=== PATIENT | male | born 1955 | race African-American/Black ===

== ENCOUNTER 2016-12-12 09:16 | Inpatient (IN) | payer OTHER ==
[~2016-12-12] VITALS: Ht 170.2 cm; Wt 82.0 kg
[~2016-12-12 09:16] MED LIST: FLEX5TAB3 PO; MELOXICAM PO; ORPHENADRINE; PERCOCET PO; PRED10TA2 PO; SENO8.6T9 PO
[2016-12-12] MEDS ORDERED: NS 1,000 ML IV SCH (10:11)
[2016-12-12 10:35] LABS: BASO % 0.3 % (0.0-1.0); EOS % 0.7 % (0.0-3.0); LARGE UNSTAINED CELL # 0.1 K/mm3 (0.0-0.4); LARGE UNSTAINED CELL % 1.3 % (0.0-4.0); LYMPH # 1.2 K/mm3 (1.5-4.5); LYMPH % 15.6 % (24.0-44.0); MEAN CORPUSCULAR HEMOGLOBIN 30.9 pg (27.0-33.0); MEAN CORPUSCULAR HGB CONC 34.1 g/dl (32.0-36.5); MEAN CORPUSCULAR VOLUME 90.4 fl (80.0-96.0); MONO # 0.5 K/mm3 (0.0-0.8); MONO % 7.3 % (0.0-5.0); NEUTROPHILS # 5.4 K/mm3 (1.8-7.7); NEUTROPHILS % 74.8 % (36.0-66.0); PLATELET COUNT, AUTOMATED 239 k/mm3 (150-450); WHITE BLOOD COUNT 7.2 K/mm3 (4.0-10.0)
[2016-12-12 10:54] LABS: ABG BASE EXCESS 1.6 (-2.0-2.0); ABG HCO3 25.7 MEQ/L (22.0-26.0); ABG PARTIAL PRESSURE O2 80.4 mmHg (75.0-100.0); ABG STANDARD HCO3 25.8 MEQ/L (22.0-26.0); ABG TOTAL CO2 26.9 MEQ/L (23.0-31.0); ABG pH (ARTERIAL) 7.437 UNITS (7.350-7.450)
--- NOTE | 2016-12-12 10:55 | REP ---
AP PORTABLE CHEST: 12/12/2016 at 10:30 a.m. COMPARISON: 12/11/2016 chest x-ray. CLINICAL HISTORY: Altered mental status. FINDINGS: Semi-erect AP portable chest performed. The lung carrillo are hypoinflated compared to yesterday's study. There is crowding of markings in the perihilar regions and patchy infrahilar density in both lower lung zones which may be atelectasis or early infiltrate. However there is no silhouetting of the diaphragms. The CP angles remain sharply defined. No lateral pleural thickening, apical scarring or pneumothorax is noted. Heart size not enlarged for this degree of inflation. The aorta is mildly tortuous but without aneurysm. Airway intact. There is no free air under the diaphragm. Bones grossly intact. IMPRESSION: 1. Hypoinflated chest with perihilar and infrahilar increased markings. This may reflect some atelectasis from low level of inflation but superimposed pneumonitis is not excluded. No gross cardiomegaly, edema or effusion. A PA and lateral chest when able would be potentially helpful. Signed by James Garcia MD 12/12/2016 05:12 P
[2016-12-12 11:06] LABS: ALKALINE PHOSPHATASE 87 U/L (45-117); ALT/SGPT 34 U/L (12-78); AST/SGOT 56 U/L (15-37); BILIRUBIN,DIRECT 0.2 MG/DL (0.0-0.2); BILIRUBIN,TOTAL 1.1 MG/DL (0.2-1.0); BLOOD UREA NITROGEN 17 MG/DL (7-18); CALCIUM LEVEL 9.1 MG/DL (8.8-10.2); CARBON DIOXIDE LEVEL 28 MEQ/L (21-32); CHLORIDE LEVEL 108 MEQ/L (98-107); CREATININE FOR GFR 1.37 MG/DL (0.70-1.30); GLUCOSE, FASTING 103 MG/DL (80-110); POTASSIUM SERUM 4.5 MEQ/L (3.5-5.1); SODIUM LEVEL 146 MEQ/L (136-145); TOTAL PROTEIN 7.1 GM/DL (6.4-8.2)
[2016-12-12 11:21] LABS: ERYTHROCYTE SEDIMENTATION RATE 1 mm/hr (0-20)
[2016-12-12 11:49] LABS: METHADONE URINE NEGATIVE (NEGATIVE)
[2016-12-12] MEDS ORDERED: PERCOCET 5MG/325MG TAB PO PRN (12:00)
[2016-12-12] MEDS ORDERED: ACETAMINOPHEN TAB 650MG DOSE (2X325MG) PO PRN (12:00)
[2016-12-12] MEDS ORDERED: ONDANSETRON 4 MG TAB (S0181) PO PRN (12:00)
[2016-12-12] MEDS ORDERED: ONDANSETRON 4MG/2ML VIAL (J2405) IV PRN (12:00)
[2016-12-12] MEDS: NS 0.45% 1,000 ML IV SCH ×2 (12:38→20:08)
--- NOTE | 2016-12-12 12:38 | HPEPDOC ---
Medical History and Physical Date of Admission Dec 12, 2016 at 11:50 History and Physical HISTORY AND PHYSICAL Date of admission: 12/12/2016 PCP: None Chief complaint: Confused, difficulty talking HPI: 61-year-old healthy and very active male who went on a 5 hour trail walk with his friend yesterday. A walk of this kind is very typical for the patient. At approximately noon, the friend decided to go home, but the patient said he wanted to continue to walk with the dogs, so they parted ways. A little bit later, the patient texted his friend and told him that he was lost. His friend instructed him to stay where he was, and he would come get him. When the friend arrived, the patient was not there. At this time, the canine team got involved, and was able to track him down 7 hours later. At that time, he was taken to the [place] [facility]. His workup there appeared relatively unremarkable, including a CT of the head which did not have any acute changes. The patient was, by report, still confused and having difficulty with his speech when he was in the [facility]. However, he was evidently allowed to sign out AMA. His son took him home, but noticed that he was shuffling when he was walking, and was still having trouble with his speech. By report, the patient was only able to speak 1 or 2 words at a time. This morning, the family evidently called EMS to transport the patient back to the [facility]. When EMS arrived, it apparently seems that the patient did not want to go to the ER, so EMS spoke with the provider at [facility], he told EMS that they could allow the patient to refuse transport. Evidently, EMS was still concerned about the patient, and recommended to the family, that they bring him to the emergency department. When he arrived in our ER, the ER doctor noticed a right facial droop, as well as right tongue deviation. Upon my interview with the patient, he is unable to explain any of this to me, and there is no family at the bedside. This history was obtained by report from our ER physician. The patient is able to answer yes or no, and to follow commands, and thus I was able to complete the review of systems. Past history was obtained from prior records. Past medical history: None Past surgical history: None Family history: Unknown Social history: No history of tobacco use. Does not drink any alcohol. Allergies: No known drug allergies Review of systems: General: Negative for fever and chills Eyes: Negative for vision changes. Positive for watery drainage from his right eye. ENT: Negative for sore throat and nose bleed Cardiovascular: Negative for chest pain and palpitations Respiratory: Negative for cough and shortness of breath GI: Negative for nausea, vomiting, diarrhea, constipation Musculoskeletal: Negative for neck and back pain Skin: Positive for superficial abrasions, and swelling of the right hand Neuro: Negative for headache, dizziness, numbness, tingling. Positive for dysarthria Psych: Patient denies being sad Endocrine: Negative for polyuria : Negative for dysuria Heme: Negative for bleeding Home meds: See below Physical exam: Vital signs: Vital Sign - Last 24 Hours 12/12/16 12/12/16 12/12/16 12/12/16 09:17 09:46 09:48 10:01 Temp 98.7 Pulse 79 70 70 Resp 16 B/P 147/82 143/82 Pulse Ox 100 97 98 12/12/16 12/12/16 12/12/16 12/12/16 10:03 10:16 10:31 11:01 Pulse 66 68 68 B/P 146/89 Pulse Ox 96 98 96 12/12/16 12/12/16 11:08 11:15 Pulse 65 Resp 20 B/P 134/80 131/80 Pulse Ox 100 Gen.: awake, alert, no acute distress Eyes: watery drainage from right eye ENT: Moist mucous membranes Cardiovascular: RRR, no murmurs rubs or gallops Lungs: clear to auscultation bilaterally, no rales, rhonchi, or wheeze Abdomen: Soft, NT/ND, normal BS Musculoskeletal: normal range of motion Extremities: No peripheral edema Neuro: alert and oriented x2, states it is "55" when asked the year; right facial droop but no other deficits noted; intact bilat finger to nose, no pronator drip; has difficulty answering questions that require more than a one or two word answer Psych: unable to assess Labs and radiology: See below CBC, lactate, TSH are unremarkable Blood and urine cultures pending Chest x-ray shows pneumonitis first atelectasis EKG shows normal sinus rhythm with no evidence of ischemia or infarct Troponin 0.13 Sodium 146 Creatinine 1.37 CK greater than 1100 CT of the head shows evolving acute infarct in the left MCA distribution including the left frontal lobe and left basal ganglia Assessment and plan: 61-year-old healthy, very active male who presents with dysarthria and is admitted with an acute CVA. 1. Acute CVA: Patient will be started on an aspirin and a statin. Lipid panel will be checked in the morning, and we will also check an MRI and MRA of the head and neck, as well as an echocardiogram. The patient will be monitored on telemetry, and Dr. Gaona with neurology will see the patient in consultation. We will ask speech therapy, as well as PT and OT to evaluate the patient. 2. Rhabdomyolysis: CK is elevated, and the patient was lost outside for several hours yesterday. We will initiate the patient on IV fluids and trend his CK. 3. Acute kidney injury and hypernatremia: I suspect that these are secondary to dehydration, given his events yesterday. As mentioned above, he'll be started on IV fluids. 4. Elevated troponin: His troponin is in the becker zone, but his EKG is entirely unremarkable. He denies any chest pain. We will continue to trend troponins and monitor on telemetry. 5. Right hand swelling: I suspect that this is secondary to some trauma from yesterday. We will get plain films of the right hand and wrist. DVT prophylaxis: Lovenox Dispo: admit as an inpatient to the PCU CODE STATUS: Full code Vital Signs See above Laboratory Data Labs 24H Laboratory Tests 2 12/12/16 10:18: Acetaminophen Level < 2.0L, Aspartate Amino Transf (AST/SGOT) 56H, Alanine Aminotransferase (ALT/SGPT) 34, Alkaline Phosphatase 87, Total Bilirubin 1.1H, Direct Bilirubin 0.2, Albumin 3.9, Ammonia < 10, White Blood Count 7.2, Red Blood Count 5.32, Hemoglobin 16.4, Hematocrit 48.1, Mean Corpuscular Volume 90.4 , Mean Corpuscular Hemoglobin 30.9, Mean Corpuscular Hemoglobin Concent 34.1, Red Cell Distribution Width 13.0, Platelet Count 239, Neutrophils (%) (Auto) 74.8H, Lymphocytes (%) (Auto) 15.6L, Monocytes (%) (Auto) 7.3H, Eosinophils (%) (Auto) 0.7, Basophils (%) (Auto) 0.3, Neutrophils # (Auto) 5.4, Lymphocytes # ( Auto) 1.2L, Monocytes # (Auto) 0.5, Eosinophils # (Auto) 0.0, Basophils # (Auto ) 0.0, C-Reactive Protein, Quantitative 0.58H, Calcium Level 9.1, Creatine Kinase MB 4.0H, Creatine Kinase MB Relative Index 0.33, Erythrocyte Sedimentation Rate 1, Ethyl Alcohol Level < 0.003, Large Unclassified Cells # 0.1, Large Unclassified Cells % 1.3, Salicylates Level < 1.7L, Thyroid Stimulating Hormone (TSH) 0.581, Total Creatine Kinase 1180H, Total Protein 7.1 , Troponin I 0.13H 12/12/16 10:39: Lactic Acid (Sepsis) 1.1 12/12/16 10:40: Bedside Glucose (Misc Panel) 93 12/12/16 10:43: Arterial Blood pH 7.437, Arterial Blood Partial Pressure CO2 39.0, Arterial Blood Partial Pressure O2 80.4, Arterial Blood Total CO2 26.9, Arterial Blood HCO3 25.7, Arterial Blood Base Excess 1.6, Arterial Blood Oxygen Saturation 96.3 , Blood Gas Bicarbonate Standard 25.8 12/12/16 11:06: Urine Amorphous Sediment , Urine Amphetamines Screen NEGATIVE, Urine Benzodiazepines Screen NEGATIVE, Urine Opiates Screen NEGATIVE, Urine Appearance CLEAR, Urine Color YELLOW, Urine pH 6.0, Urine Specific [place] 1.024 , Urine Protein NEGATIVE, Urine Glucose (UA) NEGATIVE, Urine Ketones TRACEH, Urine Urobilinogen 0.2, Urine Bilirubin NEGATIVE, Urine Leukocyte Esterase NEGATIVE, Urine Bacteria (Auto) NEGATIVE, Urine Barbiturates Screen NEGATIVE, Urine Blood NEGATIVE, Urine Calcium Carbonate Cryst(Auto) , Urine Calcium Oxalate Cryst (Auto) , Urine Calcium Phosphate Mia (Auto) , Urine Cannabinoids Screen NEGATIVE, Urine Cellular Casts , Urine Cocaine Metabolite Screen NEGATIVE , Urine Cystine Crystals , Urine Granular Casts (Auto) , Urine Hyaline Casts ( Auto) 0, Urine Leucine Crystals , Urine Methadone Screen NEGATIVE, Urine Mucus ( Auto) SMALL, Urine Nitrite NEGATIVE, Urine Oval Fat Bodies (Auto) , Urine Phencyclidine Screen NEGATIVE, Urine RBC (Auto) 6H, Urine Renal Epithelial Cells , Urine Sperm (Auto) , Urine Squamous Epithelial Cells 0, Urine Transitional Epithelial Cells , Urine Trichomonas (Auto) , Urine Triple Phosphate Cryst (Auto) , Urine Tyrosine Crystals , Urine Uric Acid Crystals ( Auto) , Urine WBC (Auto) 1, Urine Waxy Casts (Auto) , Urine Yeast-Like Cells ( Auto) CBC/BMP Laboratory Tests 12/12/16 10:18 Red Blood Count 5.32, Mean Corpuscular Volume 90.4, Mean Corpuscular Hemoglobin 30.9, Mean Corpuscular Hemoglobin Concent 34.1, Red Cell Distribution Width 13.0 , Neutrophils (%) (Auto) 74.8 H, Lymphocytes (%) (Auto) 15.6 L, Monocytes (%) ( Auto) 7.3 H, Eosinophils (%) (Auto) 0.7, Basophils (%) (Auto) 0.3, Neutrophils # (Auto) 5.4, Lymphocytes # (Auto) 1.2 L, Monocytes # (Auto) 0.5, Eosinophils # (Auto) 0.0, Basophils # (Auto) 0.0 Microbiology Microbiology 12/12/16 Blood Culture, Received Pending 12/12/16 Blood Culture, Received Pending 12/12/16 Urine Culture, Received Pending Home Medications No Active Prescriptions or Reported Meds Allergies Coded Allergies: No Known Allergies (Unverified , 07/16/13) YAMIL ESCOTO Dec 12, 2016 12:38
--- NOTE | 2016-12-12 13:44 | REP ---
Noncontrast CT study of the brain. History: Altered mental status. Comparison study is from the previous day. Findings: There is no evidence of intracranial hemorrhage. There is however a fairly large new area of low density in the left frontal lobe extending to the external capsule of the basal ganglia on the left. This is compatible with a recent infarct. No midline shift is seen. No bleed is noted. Ventricular size is unchanged from the prior study. The subarachnoid space is somewhat widened in the posterior fossa consistent with subdural hygroma. This is bilateral but unchanged and not acute. No vascular calcification is seen. The bony calvarium is intact. Impression: Acute infarct pattern developing in the left middle cerebral artery distribution left frontal lobe and left basal ganglia. No hemorrhage seen. Otherwise unchanged from yesterday's CT study. Signed by Ben Tan MD 12/12/2016 03:17 P
[2016-12-12] MEDS: ASPIRIN 81 MG ENTERIC TAB PO SCH (13:49)
[2016-12-12] MEDS: ENOXAPARIN 40 MG/0.4 ML SYRINGE (J1650) SC SCH (13:49)
[2016-12-12] MEDS: ATORVASTATIN 20 MG TAB PO SCH (13:49)
[2016-12-12 15:00] LABS: ANION GAP 10 MEQ/L (8-16)
[2016-12-12 15:01] LABS: ALBUMIN 3.9 GM/DL (3.2-5.2); ALBUMIN/GLOBULIN RATIO 1.22 (1.00-1.93)
--- NOTE | 2016-12-12 15:19 | REP ---
RIGHT WRIST SERIES: Four views. HISTORY: Swelling. FINDINGS: There is mild diffuse wrist swelling. No fracture or subluxation is seen. IMPRESSION: No fracture or other acute bony abnormality. Signed by Ben Tan MD 12/12/2016 03:18 P
--- NOTE | 2016-12-12 15:20 | REP ---
RIGHT HAND SERIES: Four views. HISTORY: Swelling. FINDINGS: Four views right hand demonstrate diffuse dorsal soft tissue swelling. Overall mineralization pattern is normal. 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 IMPRESSION: No fracture noted. Diffuse swelling. First metacarpal phalangeal joint spurring and joint space narrowing. Signed by Ben Tan MD 12/12/2016 03:18 P
[2016-12-12 18:11] VITALS: BP 136/79
[2016-12-12 21:19] VITALS: BP 143/85
[2016-12-13] VITALS (7 sets, daily range): BP systolic 126–173; BP diastolic 72–94
[2016-12-13 03:22] LABS: BASO % 0.2 % (0.0-1.0); EOS # 0.1 K/mm3 (0.0-0.50); EOS % 2.4 % (0.0-3.0); LARGE UNSTAINED CELL # 0.1 K/mm3 (0.0-0.4); LARGE UNSTAINED CELL % 1.8 % (0.0-4.0); LYMPH # 1.2 K/mm3 (1.5-4.5); LYMPH % 18.1 % (24.0-44.0); MEAN CORPUSCULAR HEMOGLOBIN 30.6 pg (27.0-33.0); MEAN CORPUSCULAR VOLUME 89.8 fl (80.0-96.0); MONO # 0.4 K/mm3 (0.0-0.8); NEUTROPHILS # 4.2 K/mm3 (1.8-7.7); NEUTROPHILS % 70.4 % (36.0-66.0); PLATELET COUNT, AUTOMATED 211 k/mm3 (150-450); RED CELL DISTRIBUTION WIDTH 12.9 % (11.5-14.5)
[2016-12-13 03:55] LABS: ALBUMIN 3.5 GM/DL (3.2-5.2); ALBUMIN/GLOBULIN RATIO 1.25 (1.00-1.93); ALKALINE PHOSPHATASE 79 U/L (45-117); ALT/SGPT 29 U/L (12-78); ANION GAP 9 MEQ/L (8-16); AST/SGOT 43 U/L (15-37); BILIRUBIN,TOTAL 1.7 MG/DL (0.2-1.0); BLOOD UREA NITROGEN 14 MG/DL (7-18); CARBON DIOXIDE LEVEL 26 MEQ/L (21-32); CHLORIDE LEVEL 104 MEQ/L (98-107); CHOLESTEROL LEVEL 215 MG/DL (<200); CREATININE FOR GFR 1.08 MG/DL (0.70-1.30); GLOMERULAR FILTRATION RATE > 60.0 (>49); GLUCOSE, FASTING 88 MG/DL (80-110); MAGNESIUM LEVEL 1.8 MG/DL (1.8-2.4); SODIUM LEVEL 139 MEQ/L (136-145); TOTAL PROTEIN 6.3 GM/DL (6.4-8.2); TRIGLYCERIDES LEVEL 66 MG/DL (<150)
[2016-12-13] MEDS: NS 0.45% 1,000 ML IV SCH ×2 (05:31→15:06)
--- NOTE | 2016-12-13 07:15 | CR ---
DATE OF CONSULTATION: 12/12/2016 REFERRING PHYSICIAN: Dr. Lashell Sneed REASON FOR CONSULTATION: Difficulty speaking and confusion. HISTORY OF PRESENT ILLNESS: Ashkan Hutton is a 61-year-old -[place] male who went on a 5-hour trail walk with his friend. This was a typical walk for him. Around noon, his friend decided to go home, but he decided to continue to walk with his dogs. A little bit later, the patient texted his friend and told him that he was lost. The friend told him to stay where he was and he would come and get him. When the friend arrived, the patient was not there. At that time, the canine team got involved and they were able to track him down 7 hours later. He was taken to [facility] emergency department. His workup was relatively unremarkable, including CT scan of his head which did not show any acute changes. The patient was still confused and had difficulty with his speech. He was allowed to sign out against medical advice. His son took him home. The patient was able to speak one or two words at a time. His gait was shuffling. This morning, the family called emergency medical services to transport him back to [facility]. It seemed that the patient did not want to go to the emergency room (ER), so emergency services spoke with a provider at [facility] emergency department that they could allow the patient to refuse transport. Emergency medical services were still concerned and recommended to the family and they brought him to the emergency department at [facility] with right-sided facial weakness and tongue deviation. In the emergency department, CT scan of his head revealed a left frontal acute-subacute ischemic stroke. The patient denies any headache, neck or back pain. He himself denies any numbness or weakness of his arms and legs. He is able to speak a few words and short sentences currently. He keeps his right eye closed, which tears. His eye examination shows conjunctival redness and erythema. PAST MEDICAL HISTORY: None. HOME MEDICATIONS: None. SOCIAL HISTORY: He denies smoking, alcohol or illicit drugs. FAMILY HISTORY: Mother had stroke. REVIEW OF SYSTEMS: All systems were reviewed and found to be noncontributory except as mentioned history present illness. ALLERGIES: No known drug allergies. PHYSICAL EXAMINATION: Vital Signs: Temperature 98.7, pulse 79, respiratory rate 16, blood pressure 147/82. Heart: Regular rate and rhythm. Lungs: Clear to auscultation. Abdomen: Soft, nontender, nondistended. No pedal edema. He has right eye conjunctival injection, redness and a little bit of swelling. He denies any trauma to his right eye or falls. The patient is awake, alert, oriented to person and place. He is unable to tell me the exact date and day. He is able to tell me month and year. Extraocular muscles are intact. No facial weakness. Tongue and uvula are midline. 5/5 strength in all four extremities. Deep tendon flexes 2+ throughout. Normal sensation. No dysmetria. Gait was not tested. DIAGNOSTIC STUDIES: CT scan of his head showed a medium-sized left anterior division of middle cerebral artery ischemic stroke. ASSESSMENT: 1. Left middle cerebral artery anterior division ischemic stroke. 2. Rule out cardiac source, coagulopathy and vasculopathy. 3. Rule out paroxysmal atrial fibrillation. PLAN: 1. MRI and MRA brain. 2. Carotid ultrasound. 3. Transesophageal echocardiogram. 4. Blood tests to rule out coagulopathy and vasculopathy. 5. Continue telemonitoring. 6. Aspirin 325 mg by mouth daily. 7. Check fasting lipid profile. In acute and subacute phase, we can continue simvastatin or atorvastatin 40 mg by mouth daily. 8. Followup with our office in 2 weeks after hospital discharge.
--- NOTE | 2016-12-13 08:12 | ECGEPIP ---
Stationary ECG Study [facility] - ED Test Date: 2016-12-12 Pat Name: Serafin AGUSTIN Department: Room: - Gender: M Registered Representative: : 1955 Requested By: Hay Coon Order Number: [id number] Reading MD: Hay Graham Measurements Intervals [place] Rate: 65 P: 55 NH: 160 QRS: 9 QRSD: 89 T: -2 QT: 391 QTc: 409 Interpretive Statements SINUS RHYTHM Electronically Signed On 12-13-2016 8:12:10 EDT by Hay Graham
[2016-12-13] MEDS: ATORVASTATIN 20 MG TAB PO SCH (08:26)
[2016-12-13] MEDS: ENOXAPARIN 40 MG/0.4 ML SYRINGE (J1650) SC SCH (08:26)
[2016-12-13] MEDS: ASPIRIN 81 MG ENTERIC TAB PO SCH (08:26)
[2016-12-13] MEDS ORDERED: ASPIRIN 325 MG TAB PO SCH (09:00)
--- NOTE | 2016-12-13 12:40 | IPN ---
DATE: 12/13/2016 This 61-year-old -Russian male is seen at the bedside. Admitted yesterday for new-onset parietal stroke. According to the nurses, he appears to be less confused than he was yesterday; however, he is having some right eye drainage which started overnight. There has been no reportable fever, chills, chest pain, nausea, vomiting, productive sputum or cough. OBJECTIVE: Temperature is 99.9, pulse 69, respiratory rate is 18, blood pressure (BP) 143/72, SPO2 is 95% on room air. General: The patient appears to be in no acute distress, alert. He does have some slight confusion, but he was able to correctly identify the hospital and that he is in [place]. He thought that the year was 2014, though was able to identify the correct president by name. HEENT: Head is atraumatic, normocephalic. Eyes: Pupils equal, reactive to light and accommodation (AWA). The right conjunctiva appears to be indurated and there is some mild clear to mucopurulent drainage of the eye. Throat is otherwise clear. Heart: Regular rate and rhythm. Abdomen: Soft. Stop Attacher strength slightly decreased on the right, however, the lower extremities do show good and equal strength. No distal sensory deficits noted. ASSESSMENT/PLAN: 1. 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 Continue on aspirin and statin therapy. Appreciate Dr. Gaona's input. MRI/MRA is pending at this time as well as an echocardiogram. Will leave him on telemetry. Speech therapy did feel the patient cleared well with speech and we can progress his diet as tolerated. Continue with physical therapy (PT) and occupational therapy (OT) evaluation and treatment. 2. Right eye conjunctivitis. Will start on gentamicin ophthalmic drops. 3. Rhabdomyolysis. Does appear to be much improved. Will continue with IV fluids. 4. Acute kidney injury with hypernatremia. Labs appear to be back at baseline. 5. Mildly elevated troponin, likely related to rhabdomyolysis. This is resolved. He does not have any chest pain. 6. Right hand swelling, possibly secondary to hand trauma. The patient had been out hiking and likely had fallen. X-rays of the wrist and hand did not demonstrate any acute fracture. This most likely is a soft tissue injury. 7. Deep vein thrombosis (DVT) prophylaxis with Lovenox. DISPOSITION: Will continue on progressive care unit (PCU) on telemetry. Await further MRI/MRA and echocardiogram results. Appreciate Dr. Gaona's input. LARRY
--- NOTE | 2016-12-13 16:31 | ECHO ---
DATE OF PROCEDURE: 12/12/2016 AGE: 61 GENDER: Male. HEIGHT: 67 inches. WEIGHT: 160 pounds. BODY SURFACE AREA: 1.84 m2. INPATIENT: Progressive care unit (PCU) Room 3221. REFERRING PHYSICIAN: Lashell Sneed INDICATION: Cerebrovascular accident (CVA). MEASUREMENTS: 2D MEASUREMENTS: RV - 3.4 cm LV - 4.9 cm Septum - 1.0 cm Posterior wall - 1.0 cm Aortic root - 3.0 cm LA - 3.4 cm LVEF 65% DOPPLER MEASUREMENTS: AV - 1.5 m/s LVOT - 1.1 m/s LVOT diameter- 2.1 cm MV - E 60, A 70, E/A ratio 0.8 Early mitral deceleration time 183 ms PV - 0.8 m/s Pulmonary artery acceleration time 80 ms RVSP 43 mmHg IVC - 1.6 cm COMMENTS: Normal sinus rhythm without intraventricular conduction disturbance. Normal cardiac chamber sizes and wall thickness. On real-time imaging from the parasternal and apical projections wall motion was symmetrical and hyperkinetic. Normal appearing mitral valvular apparatus and leaflet excursion with no posterior systolic buckling. Three equal sized aortic cusps with marginally thickened cusp edges. Normal aortic root size. No apparent intracardiac mass or pericardial effusion. Color flow Doppler study taken from the parasternal and apical projections showed very mild aortic, trace mitral and mild to moderate tricuspid insufficiency. There was also mild to moderate pulmonic insufficiency. Guided continuous wave Doppler of his aortic valve showed a normal peak systolic velocity against left ventricle (LV) outflow tract obstruction. Pulsed and continuous wave Doppler taken from the apical four-chamber projection showed normal diastolic filling velocities against mitral stenosis. The filling pattern was also normal against LV diastolic dysfunction. Pulsed and continuous wave Doppler of his pulmonary trunk showed a normal peak systolic velocity against right ventricle (RV) outflow tract obstruction. His pulmonary artery acceleration time was abbreviated consistent with an elevated pulmonary vascular resistance. Guided continuous wave Doppler of his tricuspid valve allowed our estimation of his right ventricular systolic pressure (mild to moderately increased). His inferior vena cava was of normal size with normal respiratory collapse against an elevated central venous pressure. CONCLUSIONS: Unable to detect an intracardiac source of embolic material. Normal left ventricular size, wall thickness, and hyperkinetic wall motion. Normal left atrial size and Doppler assessment of LV diastolic function. Normal right heart chamber sizes but Doppler signs of at least mild to moderate pulmonary hypertension. Normal IVC size and collapse against an elevated central venous pressure. Subtle aortic valvular sclerosis without stenosis but very mild insufficiency. If a cardiac source of embolic material is seriously suspect we would recommend a complete blood count, sedimentation rate, and two sets of blood cultures by 12 hours and possibly transesophageal echocardiogram. His observed pulmonary hypertension would not appear to be due to left ventricular diastolic dysfunction. Consider a screen for obstructive sleep apnea.
[2016-12-13] MEDS: GENTAMICIN 0.3% OPHTH SOL 5 ML BTL OD SCH ×2 (17:29→21:46)
--- NOTE | 2016-12-13 21:20 | REPUSA ---
CLINICAL HISTORY:Acute CVA TECHNIQUE: Three dimensional [id number] angiography is performed of the [place]. The darion dy was performed without IV contrast agent. FINDINGS: The supraclinoid portions of the internal carotid arteries are of normal shape. The normal bifurcation is seen. The middle cerebral arteries are unremarkable in appearance. The posterior circu lation is visualized and shows no evidence of occlusion or aneurysm formation. The basilar tip is see n and shows no aneurysm formation. There is no evidence of beading to suggest vasculitis. IMPRESSION: MRA of the [place] is within normal limits. Thank you for your kind referral of this patient.
--- NOTE | 2016-12-13 21:30 | REPUSA ---
CLINICAL HISTORY: Acute CVA TECHNIQUE: MRI of the brain was performed without administration of intravenous contrast material. T1 spine echo, T2 fast spin echo and FLAIR sequences were obtained in sagittal, axial and coronal plane s. FINDINGS: No T1, increased T2 and FLAIR signal in the left frontal temporal cortex effacing the becker-white kaiden er with history to diffusion consistent with acute infarct. No intra-axial or extraction fluid collections, midline shift, hydrocephalus, or evidence of herniati on. Paranasal sinuses, visualized mastoid air cells, orbital compartments, osseous structures, and extrar enal soft tissues are unremarkable. IMPRESSION: Acute left frontotemporal infarct. Thank you for your kind referral of this patient.
[2016-12-14] MEDS: GENTAMICIN 0.3% OPHTH SOL 5 ML BTL OD SCH ×6 (00:11→20:15)
[2016-12-14] MEDS: NS 0.45% 1,000 ML IV SCH (02:32)
[2016-12-14 04:00] VITALS: BP 129/69
[2016-12-14 05:03] LABS: BASO % 0.5 % (0.0-1.0); EOS # 0.1 K/mm3 (0.0-0.50); EOS % 1.8 % (0.0-3.0); LARGE UNSTAINED CELL # 0.1 K/mm3 (0.0-0.4); LARGE UNSTAINED CELL % 2.7 % (0.0-4.0); LYMPH # 1.2 K/mm3 (1.5-4.5); LYMPH % 23.4 % (24.0-44.0); MEAN CORPUSCULAR HEMOGLOBIN 29.7 pg (27.0-33.0); MEAN CORPUSCULAR HGB CONC 33.7 g/dl (32.0-36.5); MONO # 0.2 K/mm3 (0.0-0.8); MONO % 3.7 % (0.0-5.0); NEUTROPHILS # 3.6 K/mm3 (1.8-7.7); NEUTROPHILS % 67.9 % (36.0-66.0); PLATELET COUNT, AUTOMATED 215 k/mm3 (150-450); RED CELL DISTRIBUTION WIDTH 12.6 % (11.5-14.5); WHITE BLOOD COUNT 5.2 K/mm3 (4.0-10.0)
[2016-12-14 05:16] LABS: ALBUMIN 3.2 GM/DL (3.2-5.2); ALBUMIN/GLOBULIN RATIO 1.14 (1.00-1.93); ALKALINE PHOSPHATASE 71 U/L (45-117); ALT/SGPT 23 U/L (12-78); ANION GAP 9 MEQ/L (8-16); AST/SGOT 36 U/L (15-37); BILIRUBIN,TOTAL 1.6 MG/DL (0.2-1.0); BLOOD UREA NITROGEN 10 MG/DL (7-18); CALCIUM LEVEL 7.8 MG/DL (8.8-10.2); CARBON DIOXIDE LEVEL 26 MEQ/L (21-32); CHLORIDE LEVEL 103 MEQ/L (98-107); CREATININE FOR GFR 1.02 MG/DL (0.70-1.30); GLOMERULAR FILTRATION RATE > 60.0 (>49); GLUCOSE, FASTING 102 MG/DL (80-110); POTASSIUM SERUM 3.8 MEQ/L (3.5-5.1); SODIUM LEVEL 138 MEQ/L (136-145)
[2016-12-14 07:25] VITALS: BP 126/69
--- NOTE | 2016-12-14 07:50 | REPUSA ---
HISTORY: Acute CVA COMPARISON: None TECHNIQUE: resonance angiography of the neck was performed at 1.5T with 2-D axial [id number] imag es. During the dynamic injection of contrast, coronal 3D [id number] MRA of the neck was performed . All images are retrospectively targeted and reformatted in three dimensions according to standard p rotocol. FINDINGS: The visualized vessels demonstrate no flow restrictive stenoses or occlusions. No aneurysms are ident ified. IMPRESSION: No evidence of flow restrictive stenosis or occlusions. Thank you for your kind referral of this patient
[2016-12-14] MEDS ORDERED: SLF 3 ML SYR IV PRN (08:00)
[2016-12-14] MEDS: ATORVASTATIN 20 MG TAB PO SCH (09:09)
[2016-12-14] MEDS: ASPIRIN 325 MG TAB PO SCH (09:09)
[2016-12-14] MEDS: ENOXAPARIN 40 MG/0.4 ML SYRINGE (J1650) SC SCH (09:10)
[2016-12-14 11:30] VITALS: BP 125/78
[2016-12-14] MEDS: SLF 3 ML SYR IV SCH ×2 (14:00→20:16)
--- NOTE | 2016-12-14 14:32 | IPN ---
DATE: 12/14/2016 61-year-old gentleman seen at bedside. No overnight issues reported. Denies headache, dizziness, blurry vision, double vision. No chest pain, nausea or vomiting. No shortness of breath. Physical therapy states that he is doing better today and participating well with them. No issues with his meals. OBJECTIVE Temperature 97.7, pulse 58, respiratory rate 18, blood pressure 126/69, SpO2 is 100% on room air. HEENT: The right conjunctiva is slightly indurated with some clear drainage. Throat is clear. NECK: Supple. LUNGS: Clear. HEART: Regular rhythm. ABDOMEN: Soft. EXTREMITIES: Stone Banker strength barely diminished on the right compared to left; otherwise, his power is 6/6 in the upper and lower extremities with good movement throughout. Pulses were equal. Sensation is equal throughout. Cranial nerves II through XII are grossly intact. He is alert and oriented times three. His cognition is slightly slow, but he is able to recognize person, place and thing appropriately. Appropriately identifies where he is at, who the president is, the current year. LABORATORY DATA: White count 5.2, hemoglobin 15.1, platelets 215,000. Sodium is 138, potassium 3.8, chloride 103, bicarb 26, anion gap 9, BUN 10, creatinine 1.02, glucose 102, magnesium 2.0, AST 36, ALT 23, alkaline phosphatase 71, CK is 549, albumin is 3.2. Coagulopathy studies are pending as well as ANCA studies, Ro and La antibodies, as well as anticardiolipin and double-stranded DNA is pending. Blood cultures negative times two for 48 hours. Urine cultures negative. ASSESSMENT/PLAN: 1. 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 Does appear to be slightly improved. Continue with aspirin and statin therapy as outlined. Appreciate Dr. Gaona's input. Transesophageal echocardiogram is pending at this time. Will continue him on telemetry. Appreciate speech therapy who did clear him to increase his diet to a regular diet. Continue with physical therapy, occupational therapy. 2. Right eye conjunctivitis. Continue with gentamicin ophthalmic drops. 3. Rhabdomyolysis. Appears much improved. His CK is 549. He is tolerating good oral intake. Will go ahead and discontinue his IV fluids. 4. Acute kidney injury with hypernatremia. Resolved and at baseline. 5. Elevated Troponin, likely related to rhabdomyolysis. He did not have any chest pain. No EKG changes. No changes on telemetry. This was a mild elevation of troponin which is resolved. 6. Right hand swelling, possibly secondary to trauma. This appears to be going down. X-rays are negative for any fracture, and likely this was soft tissue injury. 7. Deep vein thrombosis (DVT) prophylaxis. Continue with Lovenox. DISPOSITION: The patient's prognosis appears to be good. Currently we are awaiting a transesophageal echo. Will leave him on telemetry for the time being. Appreciate Dr. Gaona's input and with see how he does with continuing with physical therapy and occupational therapy, and see if there would be a necessity for a physical medicine and rehabilitation consult. Currently, the big issue that he has is with some slowed cognition, but will see how that improves over the next 24-48 hours.
[2016-12-14 15:46] VITALS: BP 138/90
[2016-12-14 20:00] VITALS: BP 149/76
[2016-12-15] VITALS (14 sets, daily range): BP systolic 109–148; BP diastolic 63–88
[2016-12-15] MEDS: GENTAMICIN 0.3% OPHTH SOL 5 ML BTL OD SCH ×6 (00:05→20:51)
[2016-12-15] MEDS: SLF 3 ML SYR IV SCH ×3 (05:42→20:51)
[2016-12-15 05:47] LABS: BASO % 0.3 % (0.0-1.0); EOS # 0.1 K/mm3 (0.0-0.50); EOS % 2.5 % (0.0-3.0); LARGE UNSTAINED CELL # 0.1 K/mm3 (0.0-0.4); LARGE UNSTAINED CELL % 1.7 % (0.0-4.0); LYMPH # 1.3 K/mm3 (1.5-4.5); LYMPH % 23.1 % (24.0-44.0); MEAN CORPUSCULAR HEMOGLOBIN 30.3 pg (27.0-33.0); MEAN CORPUSCULAR HGB CONC 34.5 g/dl (32.0-36.5); MEAN CORPUSCULAR VOLUME 87.8 fl (80.0-96.0); MONO # 0.4 K/mm3 (0.0-0.8); NEUTROPHILS # 3.4 K/mm3 (1.8-7.7); NEUTROPHILS % 65.4 % (36.0-66.0); PLATELET COUNT, AUTOMATED 205 k/mm3 (150-450); RED CELL DISTRIBUTION WIDTH 12.7 % (11.5-14.5); WHITE BLOOD COUNT 5.2 K/mm3 (4.0-10.0)
[2016-12-15 06:04] LABS: ALBUMIN 3.3 GM/DL (3.2-5.2); ALBUMIN/GLOBULIN RATIO 0.97 (1.00-1.93); ALKALINE PHOSPHATASE 74 U/L (45-117); ALT/SGPT 25 U/L (12-78); ANION GAP 9 MEQ/L (8-16); AST/SGOT 29 U/L (15-37); BLOOD UREA NITROGEN 12 MG/DL (7-18); CALCIUM LEVEL 8.3 MG/DL (8.8-10.2); CARBON DIOXIDE LEVEL 26 MEQ/L (21-32); CHLORIDE LEVEL 105 MEQ/L (98-107); GLOMERULAR FILTRATION RATE > 60.0 (>49); GLUCOSE, FASTING 104 MG/DL (80-110); MAGNESIUM LEVEL 2.1 MG/DL (1.8-2.4); POTASSIUM SERUM 3.8 MEQ/L (3.5-5.1); SODIUM LEVEL 140 MEQ/L (136-145); TOTAL PROTEIN 6.7 GM/DL (6.4-8.2)
[2016-12-15] MEDS: ENOXAPARIN 40 MG/0.4 ML SYRINGE (J1650) SC SCH (09:32)
[2016-12-15] MEDS: ASPIRIN 325 MG TAB PO SCH (09:32)
[2016-12-15] MEDS: ATORVASTATIN 20 MG TAB PO SCH (09:32)
--- NOTE | 2016-12-15 11:54 | IPN ---
DATE: 12/15/2016 61-year-old gentleman seen at bedside. No overnight issues reported. He is much more cognizant today. He is alert, oriented times three. Denies headache, blurry vision, double vision. Feels that his eye drainage is much improved. No chest pain, shortness breath. He is doing well with physical therapy (PT) and occupational therapy (OT). OBJECTIVE: Temperature is 99.3, pulse 60 and regular, respiratory rate 20, blood pressure 140/87, SpO2 is 100% on room air. GENERAL: The patient appears to be in no acute distress. He is alert, oriented. HEENT: Unremarkable. LUNGS: Clear. HEART: Regular rate and rhythm. ABDOMEN: Soft. EXTREMITIES: No edema. No calf tenderness. NEUROLOGIC: Cranial nerves II-XII grossly intact. He is not demonstrating any sensory deficits. LABORATORY DATA: White count 5.2, hemoglobin 15.6, platelets are 205,000. Sodium is 140, potassium 3.8, chloride 105, bicarbonate 26, anion gap 9, BUN 12, creatinine 1.0, glucose 104, calcium 8.3, magnesium 2.1, AST 29, ALT 25, alkaline phosphatase 74, CK is 319, albumin is 3.3. Coagulopathy screening is pending still. Blood cultures negative for 72 hours times two. ASSESSMENT/PLAN 1. New acute left parietal CVA with right arm weakness, which is improved. Doing well from physical therapy standpoint. He is close to being ready to discharge. He is scheduled for a transesophageal echocardiogram later today and is currently nothing by mouth. We will continue on telemetry overnight. Appreciate speech therapy input. Continue his regular diet and if he is doing well tomorrow with no significant abnormalities, we will plan on discharge tomorrow morning. 2. Right eye conjunctivitis. Gentamicin opthalmic drops. 3. Rhabdomyolysis, improved. CK is now down to 319. Continue with oral fluid intake, no longer on IV fluids. 4. Acute kidney injury with hypernatremia, resolved and at baseline. 5. Elevated troponin, which was mildly elevated at admission, likely secondary to rhabdomyolysis. No EKG changes. No changes on telemetry. This is now resolved. 6. Right hand swelling, possibly secondary to trauma and soft tissue trauma. X-rays were negative for any fractures. 7. Deep vein thrombosis (DVT) prophylaxis on Lovenox. DISPOSITION: The patient will have MOSHE later today. Appreciate Dr. Gaona's input. Continue with current medications. Anticipate home discharge perhaps tomorrow morning.
[2016-12-15] MEDS ORDERED: MIDAZOLAM INJ 2 MG/2 ML VIAL (J2250) As Ordered ONE ×2 (15:30→15:53)
--- NOTE | 2016-12-15 17:10 | T-ECHO ---
DATE OF PROCEDURE: 12/15/2016 REFERRING PHYSICIAN: Dr. Мария Gaona PREPROCEDURE DIAGNOSIS: Acute stroke. POSTPROCEDURE DIAGNOSIS: See conclusions below. PROCEDURE: INDICATION: Acute stroke. PROCEDURE PERFORMED BY: Álvaro Solano MD BULK SYSTEM OPERATOR: None. No complications. Light conscious sedation was performed using midazolam 4 mg IV. DESCRIPTION OF PROCEDURE: The patient received 4 mg total of midazolam IV for light conscious sedation and also received Cetacaine spray to the back of the pharynx. Following sedation, esophageal intubation was accomplished without difficulty using a Radha multiplane two-dimensional transesophageal phased array transesophageal (TE) probe. The left and right ventricles appeared normal in size and systolic function. Atrial septum was intact anatomically and by color flow Doppler. No patent foramen ovale could be demonstrated by multiple saline contrast injections with Valsalva maneuver release. No spontaneous echo contrast was seen within the cardiac chambers. No intracardiac thrombi. Left atrial appendage was normal in appearance and was without spontaneous echo contrast or thrombus. Pulmonary venous flow connections to the left atrium were normal. Pulmonary vein flow in the left upper pulmonary vein was normal. Aortic valve was 3-cuspid and displayed very mild focal thickening. Very mild aortic regurgitation was present. Mild prolapse of the anterior mitral leaflet was present. The distal portion of the anterior mitral leaflet was mildly myxomatous. Very mild mitral regurgitation was present. Very mild tricuspid regurgitation was present and within normal limits. Tricuspid leaflets appeared normal. Pulmonic valve was normal. Very mild pulmonic regurgitation was present and within normal limits. No pericardial effusion. Distal aortic arch and descending thoracic aorta showed mild atherosclerotic plaque but no mobile components and no complex atheroma. CONCLUSIONS: 1. No patent foramen ovale. 2. No atrial septal defect. 3. No ventricular septal defect. 4. Normal left ventricle size and systolic function. No regional wall motion abnormalities. 5. No intracardiac masses or thrombi. No spontaneous echo contrast within any of the cardiac chambers. 6. Mild mitral valve prolapse with very mild mitral valve regurgitation. 7. Very mild aortic valve sclerosis. Very mild aortic regurgitation. 8. Mild atheroma involving the distal aortic arch and descending thoracic aorta. Copies To: Dr. Мария Turk
[2016-12-16] MEDS: GENTAMICIN 0.3% OPHTH SOL 5 ML BTL OD SCH ×3 (01:46→08:45)
[2016-12-16 04:45] VITALS: BP 137/60
[2016-12-16 05:39] LABS: ALBUMIN 3.7 GM/DL (3.2-5.2); ALBUMIN/GLOBULIN RATIO 1.09 (1.00-1.93); ALKALINE PHOSPHATASE 88 U/L (45-117); ALT/SGPT 38 U/L (12-78); ANION GAP 8 MEQ/L (8-16); AST/SGOT 31 U/L (15-37); BASO % 0.2 % (0.0-1.0); BILIRUBIN,TOTAL 0.8 MG/DL (0.2-1.0); BLOOD UREA NITROGEN 14 MG/DL (7-18); CALCIUM LEVEL 8.6 MG/DL (8.8-10.2); CARBON DIOXIDE LEVEL 27 MEQ/L (21-32); CHLORIDE LEVEL 103 MEQ/L (98-107); CREATININE FOR GFR 1.06 MG/DL (0.70-1.30); EOS # 0.1 K/mm3 (0.0-0.50); EOS % 1.7 % (0.0-3.0); GLOMERULAR FILTRATION RATE > 60.0 (>49); GLUCOSE, FASTING 106 MG/DL (80-110); LARGE UNSTAINED CELL # 0.1 K/mm3 (0.0-0.4); LARGE UNSTAINED CELL % 1.5 % (0.0-4.0); LYMPH # 1.3 K/mm3 (1.5-4.5); LYMPH % 19.3 % (24.0-44.0); MAGNESIUM LEVEL 2.1 MG/DL (1.8-2.4); MEAN CORPUSCULAR HEMOGLOBIN 30.4 pg (27.0-33.0); MEAN CORPUSCULAR HGB CONC 34.6 g/dl (32.0-36.5); MONO # 0.4 K/mm3 (0.0-0.8); MONO % 6.6 % (0.0-5.0); NEUTROPHILS # 4.5 K/mm3 (1.8-7.7); NEUTROPHILS % 70.7 % (36.0-66.0); PLATELET COUNT, AUTOMATED 233 k/mm3 (150-450); POTASSIUM SERUM 3.9 MEQ/L (3.5-5.1); RED CELL DISTRIBUTION WIDTH 12.7 % (11.5-14.5); SODIUM LEVEL 138 MEQ/L (136-145); TOTAL PROTEIN 7.1 GM/DL (6.4-8.2); WHITE BLOOD COUNT 6.4 K/mm3 (4.0-10.0)
[2016-12-16] MEDS: SLF 3 ML SYR IV SCH (05:49)
[2016-12-16 08:00] VITALS: BP 114/67
[2016-12-16] MEDS: ATORVASTATIN 20 MG TAB PO SCH (08:45)
[2016-12-16] MEDS: ASPIRIN 325 MG TAB PO SCH (08:45)
[2016-12-16] MEDS: ENOXAPARIN 40 MG/0.4 ML SYRINGE (J1650) SC SCH (08:45)
[2016-12-16] MEDS ORDERED: ATOR1TAB21 PO (09:05)
[2016-12-16] MEDS ORDERED: ASPI325T PO (09:05)
--- NOTE | 2016-12-16 14:07 | DSES ---
DATE OF ADMISSION: 12/12/2016 DATE OF DISCHARGE: 12/16/2016 ADMISSION/DISCHARGE DIAGNOSES: 1. New onset acute left parietal cerebrovascular accident (CVA) with right arm weakness on presentation, which has resolved and doing well from physical therapy standpoint. 2. Right eye conjunctivitis. Doing well on gentamicin. 3. Rhabdomyolysis, resolved. 4. Acute kidney injury with hypernatremia, resolved. 5. Slight elevation of Troponin on baseline, resolved with no EKG changes. No changes on telemetry. 6. Right hand swelling secondary to likely trauma and soft tissue trauma. CONSULTANTS: Dr. Gaona procedures PROCEDURES: Transesophageal echocardiogram (MOSHE) by Dr. Solano. BRIEF HOSPITAL COURSE: Mr. Russell Hutton is a 61-year-old gentleman that was found while hiking, suddenly became confused and lost and did require a canine unit from the local police department to finally track him and bring him to the emergency department. He was felt to have had some underlying rhabdomyolysis and hypothermia, which he did respond quickly to; however, his CT scan of the head did have some suggestive findings and followup MRI, MRA did suggest a acute left frontal and temporal infarct. X-rays of the hand and wrist were negative. Chest x-ray was unremarkable. Carotid artery MRI was negative for any significant restrictive stenosis or occlusions. MOSHE did not demonstrate any structural abnormality, however, I did have a discussion with Dr. Solano who felt the patient would be a good candidate for a loop recorder to rule out any underlying arrhythmias. 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 Solano's office. He was started per Dr. Gaona's recommendations on aspirin 325 mg daily as well as Lipitor 40 mg daily and will need outpatient followup at the neurology office within the next couple of weeks. PHYSICAL EXAMINATION: Today, temperature is 98.3, pulse 16 and regular, respiratory rate 18, blood pressure 114/67, SpO2 is 97% on room air. GENERAL: The patient appears to be in no acute distress, alert and oriented, pleasant to talk to. HEENT: Unremarkable. LUNGS: Clear. HEART: Regular rate and rhythm. ABDOMEN: Soft. EXTREMITIES: No edema. No calf tenderness. LABORATORIES: White count 6.4, hemoglobin 15.8, platelets 233,000, sodium 138, potassium 3.9, chloride 103, bicarb 23, anion gap 8, BUN is 14, creatinine 1.06, glucose 106. ANCA, anticardiolipin studies, Ro and La antibodies as well as Factor II mutations are all pending, which can be followed up outpatient. Blood cultures remain negative after 72 hours. DISCHARGE CONDITION: Good. DISPOSITION: Discharge to home. DISCHARGE MEDICATIONS: - aspirin 325 mg daily - Lipitor 40 mg daily DISCHARGE INSTRUCTIONS: 1. Discharged home. 2. Activity as tolerated. 3. Keep followup appointment primary care provider at [place]. 4. Regular diet. 5. Followup with Dr. Gaona in the next week or so and will need an appointment for a loop recorder per Dr. Solano. He should seek medical attention should his symptoms worsen or progress. He voices understanding.
== END 2016-12-16 11:30 | disposition home or self-care (01) | DRG 65 ==
LOC: M ED 10:20 → M ED INP 11:50 → M PCU 17:50 → M ICU 12-15 15:19 → M PCU 12-15 16:34
PROVIDERS: ADMIT Hospitalist; ATTEND Hospitalist
DX: I63.9 Cerebral infarction, unspecified (principal); M62.82 Rhabdomyolysis; N17.9 Acute kidney failure, unspecified; E87.0 Hyperosmolality and hypernatremia; H10.9 Unspecified conjunctivitis; R79.89 Other specified abnormal findings of blood chemistry; M79.89 Other specified soft tissue disorders; Z79.899 Other long term (current) drug therapy; Z82.3 Family history of stroke

== ENCOUNTER → 2017-02-15 | Day surgery (SDC) | payer OTHER ==
[~2017-02-15] VITALS: Ht 170.2 cm; Wt 80.3 kg
[~2017-02-15] MED LIST changes: +ASPI325T PO; +ATOR1TAB21 PO; +BALANCED SALT IRRIGATION SOLUTION 500ML BAG (FOR OR EYE MACHINE) As Ordered ONE; +LIDOCAINE 1% MDV 20ML VIAL As Ordered ONE; +LR 1,000 ML IV ONE; +LR 1,000 ML IV SCH; +MIDAZOLAM INJ 2 MG/2 ML VIAL (J2250) As Ordered ONE; +MULT1TAB10 PO; +NORCO, ANEXSIA 5/325MG TABLET (HYDROcodone/ACETAMINOPHEN) PO PRN; +ONDANSETRON 4MG/2ML VIAL (J2405) IV PRN; +PROPOFOL 200 MG/20 ML VIAL As Ordered ONE; +ceFAZolin SOD 1 GM in D5W MINI-BAG PLUS 50 ML IV ONE; +fentaNYL 100 MCG/2 ML INJECTION (J3010) As Ordered ONE
[2017-02-15 15:45] VITALS: BP 149/89
--- NOTE | 2017-02-15 19:33 | RO ---
DATE OF PROCEDURE: 02/15/2017 PREOPERATIVE DIAGNOSIS: Cryptogenic stroke. POSTOPERATIVE DIAGNOSIS: Cryptogenic stroke. FINDINGS: Cryptogenic stroke. OPERATIVE PROCEDURE: Implantation of an implantable loop recorder (Medtronic). SURGEON: Álvaro Solano MD DIRECTOR CONSTRUCTION SERVICES: None. ANESTHESIA: 1% Lidocaine local/monitored anesthetic care. SPECIMENS: None. ESTIMATED BLOOD LOSS: Less than 5 mL BLOOD PRODUCTS REPLACED: None. DRAINS: None. COMPLICATIONS: None. DESCRIPTION OF OPERATION: The patient was prepped and draped over the left anterior chest. Lidocaine 1% was used for local anesthetic. An incision was made with a #15 blade approximately 1 cm in length, approximately fourth left interspace, about an inch lateral to the left parasternal border. The guide on the insertion tool containing the loop recorder was placed into the incision and advanced into the subcutaneous fat parallel to the skin, roughly in a 45 degree direction going caudal, left lateral. The insertion tool was then rotated 180 degrees. The punch was placed into the insertion tool and used to advance the loop recorder into the subcutaneous fat. Next, the punch was removed and then the insertion tool was removed. Thereby the loop recorder was left behind in situ in the subcutaneous fat. Next, the skin was approximated using #4-0 Biosyn within the free ends of the suture material placed approximately 3/4 of a centimeter to either side of the incision at the level of the skin. Next, two layers of Dermabond was applied. The suture material was snipped at the level of the skin on both sides. The implantable loop recorder implanted was a [employer] Retail Reveal LINQ, model LNQ11 with serial number [id number]. The initial R wave at the time of implant measured 1.40 mV.
== END | disposition home or self-care (01) ==
LOC: M SDC 13:17
PROVIDERS: ATTEND Internal Medicine Cardiovascular Disease
DX: I63.9 Cerebral infarction, unspecified (principal); I34.8 Other nonrheumatic mitral valve disorders; I35.8 Other nonrheumatic aortic valve disorders; E78.5 Hyperlipidemia, unspecified; Z79.82 Long term (current) use of aspirin; Z79.899 Other long term (current) drug therapy
CPT/HCPCS: 33282; C1764; J0690; J2250; J3010

== ENCOUNTER 2017-02-19 06:00 | Outpatient (RCR) | payer OTHER, SELFPAY ==
[~2017-02-19 06:00] MED LIST changes: -BALANCED SALT IRRIGATION SOLUTION 500ML BAG (FOR OR EYE MACHINE) As Ordered ONE; -LIDOCAINE 1% MDV 20ML VIAL As Ordered ONE; -LR 1,000 ML IV ONE; -LR 1,000 ML IV SCH; -MIDAZOLAM INJ 2 MG/2 ML VIAL (J2250) As Ordered ONE; -NORCO, ANEXSIA 5/325MG TABLET (HYDROcodone/ACETAMINOPHEN) PO PRN; -ONDANSETRON 4MG/2ML VIAL (J2405) IV PRN; -PROPOFOL 200 MG/20 ML VIAL As Ordered ONE; -ceFAZolin SOD 1 GM in D5W MINI-BAG PLUS 50 ML IV ONE; -fentaNYL 100 MCG/2 ML INJECTION (J3010) As Ordered ONE
== END 2017-02-28 ==
LOC: M ST 06:00
PROVIDERS: ATTEND Psychiatry & Neurology Neurology
DX: Z51.89 Encounter for other specified aftercare (principal); R47.01 Aphasia
CPT/HCPCS: 92507; 92523; G9162; G9163

== ENCOUNTER 2017-03-19 06:00 | Outpatient (RCR) | payer OTHER | END 2017-03-30 | LOC: M ST 06:00 | PROVIDERS: ATTEND Psychiatry & Neurology Neurology | DX: Z51.89 Encounter for other specified aftercare (principal); R47.01 Aphasia ==

== ENCOUNTER → 2018-03-23 | Outpatient (CLI) | payer OTHER | LOC: M RAD 08:11 | DX: Z53.8 Procedure and treatment not carried out for other reasons (principal) ==

== ENCOUNTER → 2018-04-12 | Outpatient (CLI) | payer OTHER | LOC: M RAD 15:13 | DX: I67.1 Cerebral aneurysm, nonruptured (principal); I73.9 Peripheral vascular disease, unspecified; Z86.79 Personal history of other diseases of the circulatory system | CPT/HCPCS: 70551 ==

== ENCOUNTER 2018-10-22 11:55 | Day surgery (SDC) | payer OTHER ==
[~2018-10-22] VITALS: Ht 170.2 cm; Wt 79.3 kg
[~2018-10-22 11:55] MED LIST changes: +LR 1,000 ML IV ONE; +ceFAZolin SOD 1 GM in D5W MINI-BAG PLUS 50 ML IV ONE
[2018-10-22] MEDS ORDERED: PROPOFOL 200 MG/20 ML VIAL As Ordered ONE (13:51)
[2018-10-22] MEDS ORDERED: fentaNYL 100 MCG/2 ML INJECTION (J3010) As Ordered ONE (13:51)
[2018-10-22] MEDS ORDERED: LIDOCAINE 2% INJ 100 MG/5 ML SDV (FOR ANES.) As Ordered ONE (13:51)
[2018-10-22] MEDS ORDERED: MIDAZOLAM INJ 2 MG/2 ML VIAL (J2250) As Ordered ONE (13:51)
[2018-10-22] MEDS ORDERED: LIDOCAINE 1% SDV INJ 30 ML VIAL As Ordered ONE (14:00)
--- NOTE | 2018-10-22 15:05 | RO ---
DATE OF PROCEDURE: 10/22/2018 PREPROCEDURE DIAGNOSIS: Medtronic LINQ ILR (implantable loop recorder) in situ. POSTPROCEDURE DIAGNOSIS: Medtronic LINQ ILR (implantable loop recorder) in situ. PROCEDURE: Explantation of ILR. SURGEON: Dr. Álvaro Solano. SCOW DERRICK OPERATOR: None. ANESTHESIA: Lidocaine 1% local/monitored anesthetic care. SPECIMENS: Old Medtronic LINQ implantable loop recorder. ESTIMATED BLOOD LOSS: Less than 2 mL. No blood products placed. DRAINS: None. COMPLICATIONS: None. DESCRIPTION OF PROCEDURE: Patient was prepped and draped over the left anterior chest. Lidocaine 1% was used for local anesthetic. An incision approximately 1.5 cm in length was made over the existing scar of the original ILR site and extended a little bit on either side of the original scar. Find scissor resection was used to get down to the anterior capsule overlying the implantable loop recorder. The implantable loop recorder was then gripped and pulled out from the pocket. A single #2-0 Vicryl suture was used to approximate the more deep layer. The skin was then approximated temporarily using a #4-0 Biosyn suture applied subcuticular with the free end of the stitch on both side between the skin on either end. Next, two areas of Dermabond was applied. Once the Dermabond was dry, the #4-0 Biosyn suture was pulled through the incision and removed. Mastisol was applied to both side of the incision (perpendicular) careful not to get any Mastisol on the Dermabond. Three half-inch Steri-Strips which were cut in half were applied crosswise over the incision. The patient tolerated the procedure well without any immediate complications.
[2018-10-22 15:40] VITALS: BP 136/88
== END 2018-10-22 15:43 | disposition home or self-care (01) ==
LOC: M SDC 11:55
PROVIDERS: ATTEND Internal Medicine Cardiovascular Disease
DX: Z45.09 Encounter for adjustment and management of other cardiac device (principal); I63.9 Cerebral infarction, unspecified; E78.5 Hyperlipidemia, unspecified; G47.30 Sleep apnea, unspecified; Z79.899 Other long term (current) drug therapy
CPT/HCPCS: 33286; J0690; J2250; J3010

== ENCOUNTER → 2019-06-30 | Outpatient (REF) ==
[~2019-06-30] MED LIST changes: +ASPI-1 PO; -ASPI325T PO; -LR 1,000 ML IV ONE; +OXYC1TAB23 PO; -PERCOCET PO; -ceFAZolin SOD 1 GM in D5W MINI-BAG PLUS 50 ML IV ONE
== END ==
LOC: M LAB LCGH 13:42
PROVIDERS: ATTEND Surgery
DX: Z80.0 Family history of malignant neoplasm of digestive organs (principal)

== ENCOUNTER → 2021-05-23 | Outpatient (CLI) | payer OTHER ==
--- NOTE | 2021-05-23 15:07 | REP ---
INDICATION: PVD COMPARISON: None. TECHNIQUE: Bella scale and color Doppler evaluation using linear high frequency transducer. FINDINGS: Ultrasound examination of the right and left lower extremity deep venous structures from the common femoral vein through the calf/ankle to include the peroneal, and tibial veins demonstrates normal compressibility flow and wave patterns in response to respiration and augmentation. There is no evidence for deep venous thrombosis. IMPRESSION: No evidence for deep venous thrombosis. <Electronically signed by Eusebio Caputo > 05/23/21 [id number]
--- NOTE | 2021-05-23 15:25 | REP ---
INDICATION: PVD COMPARISON: None. TECHNIQUE: Real time bella scale and color Doppler evaluation of the bilateral lower extremity arterial vasculature using linear high frequency transducer. FINDINGS: Bella scale and color images demonstrate moderate amounts of bilateral atheromatous plaquing. Right lower extremity BRO equals 1.3. Triphasic wave patterns are noted to the level of the mid anterior tibial artery where there is an area of 8:1 stenosis followed by monophasic wave pattern to the distal anterior tibial artery. Left lower extremity BRO equals 1.3. Triphasic and biphasic arterial wave patterns are noted throughout without evidence for focal stenosis or occlusion. Peak systolic velocities (cm/sec) Common femoral artery: Right 121; Left 101 Profunda femoris: Right 99; Left 71 SFA (proximal): Right 126; Left 126 SFA (mid): Right 75; Left 76 SFA (distal): Right 46; Left 40 Popliteal artery: Right 52; Left 42 NELSY (prox.): Right 36/285; Left 40 Tibioperoneal trunk: Right 51; Left 50 WATER QUALITY CONTROL ENGINEER (prox.): Right 48; Left 71 WATER QUALITY CONTROL ENGINEER (distal): Right 57; Left 65 NELSY (distal): Right 10; Left 24 IMPRESSION: Bilateral atheromatous plaquing noted. Significant focal area of stenosis in the right anterior tibial artery. <Electronically signed by Eusebio Caputo > 05/23/21 [id number]
== END ==
LOC: M RAD 13:04
PROVIDERS: ATTEND Internal Medicine
DX: I70.213 Atherosclerosis of native arteries of extremities with intermittent claudication, bilateral legs (principal)

== ENCOUNTER → 2021-06-27 | Outpatient (CLI) | payer OTHER | LOC: M RAD 13:27 | PROVIDERS: ATTEND Internal Medicine | DX: Z53.9 Procedure and treatment not carried out, unspecified reason (principal); I73.00 Raynaud's syndrome without gangrene ==

== ENCOUNTER 2022-04-25 02:32 | Emergency (ER) | payer MEDICARE, OTHER ==
[~2022-04-25] VITALS: Ht 170.2 cm; Wt 71.4 kg
[2022-04-25 03:05] LABS: BILIRUBIN, URINE MANUAL OBSCURED (NEGATIVE); GLUCOSE, URINE (UA) MANUAL NEGATIVE (NEGATIVE); KETONE, URINE MANUAL OBSCURED mg/dL (NEGATIVE); UROBILINOGEN, URINE MANUAL OBSCURED mg/dl (NORMAL)
[2022-04-25 03:07] LABS: BACTERIA, URINE SMALL AMOUNT; HYALINE CAST, URINE NONE SEEN /lpf (0-1); RBC, URINE TNTC /hpf (0-3); SQUAMOUS EPITHELIAL CELL URINE SMALL AMOUNT /hpf (SMALL AMT)
[2022-04-25 04:03] LABS: BASO % 0.7 % (0.0-1.0); EOS # 0.1 10^3/uL (0.0-0.5); EOS % 2.1 % (0.0-3.0); HEMATOCRIT 44.1 % (42.0-52.0); HEMOGLOBIN 14.7 g/dl (13.5-17.5); LYMPH # 1.3 10^3/uL (1.5-5.0); LYMPH % 22.6 % (24.0-44.0); MEAN CORPUSCULAR HEMOGLOBIN 30.2 pg (27.0-33.0); MEAN CORPUSCULAR HGB CONC 33.3 g/dl (32.0-36.5); MEAN CORPUSCULAR VOLUME 90.6 fl (80.0-96.0); MONO # 0.8 10^3/uL (0.0-0.8); MONO % 13.4 % (2.0-8.0); NEUTROPHILS # 3.6 10^3/uL (1.5-8.5); PLATELET COUNT, AUTOMATED 233 10^3/uL (150-450); RED BLOOD COUNT 4.87 10^6/uL (4.30-6.10); WHITE BLOOD COUNT 5.8 10^3/uL (4.0-10.0)
[2022-04-25 04:32] LABS: BLOOD UREA NITROGEN 20 MG/DL (7-18); CREATININE FOR GFR 1.36 MG/DL (0.70-1.30); GLOMERULAR FILTRATION RATE > 60.0 (>49); GLUCOSE, FASTING 102 MG/DL (70-100); POTASSIUM SERUM 4.1 MEQ/L (3.5-5.1); SODIUM LEVEL 142 MEQ/L (136-145)
[2022-04-25 04:33] LABS: CALCIUM LEVEL 9.2 MG/DL (8.8-10.2); CARBON DIOXIDE LEVEL 29 mmol/L (20-29); CHLORIDE LEVEL 105 MEQ/L (98-107)
[2022-04-25] MEDS ORDERED: LIDOCAINE 2% 5ML JELLY UROJET TOP ONE (06:40)
[2022-04-25] MEDS ORDERED: CEPHALEXIN 500 MG CAP PO ONE (06:45)
[2022-04-25] MEDS ORDERED: TAMSULOSIN 0.4 MG CAP PO ONE (06:50)
[2022-04-25] MEDS ORDERED: FLOM0.4C39 PO (06:51)
[2022-04-25] MEDS ORDERED: CEPH500C PO (06:52)
[2022-04-25] MEDS ORDERED: NS 1,000 ML IV ONE (06:55)
[2022-04-25 10:45] VITALS: BP 117/75
== END 2022-04-25 11:09 | disposition home or self-care (01) ==
LOC: M ED 02:32
DX: N39.0 Urinary tract infection, site not specified (principal); N40.1 Benign prostatic hyperplasia with lower urinary tract symptoms; R33.9 Retention of urine, unspecified; R94.4 Abnormal results of kidney function studies; N32.3 Diverticulum of bladder; N20.0 Calculus of kidney; Z86.73 Personal history of transient ischemic attack (TIA), and cerebral infarction without residual deficits; Z79.82 Long term (current) use of aspirin; Z79.899 Other long term (current) drug therapy

== ENCOUNTER → 2025-05-06 | Outpatient (REF) | payer MEDICARE, OTHER ==
[~2025-05-06] MED LIST changes: +CEPH500C PO; +TAMS-18 PO
[2025-05-06 17:29] LABS: APPEARANCE, URINE CLOUDY (CLEAR); BACTERIA, URINE AUTO NEGATIVE (NEGATIVE); BILIRUBIN, URINE AUTO NEGATIVE (NEGATIVE); BLOOD, URINE BLOOD 2+ (NEGATIVE); GLUCOSE, URINE (UA) AUTO NEGATIVE (NEGATIVE); KETONE, URINE AUTO NEGATIVE (NEGATIVE); LEUKOCYTE ESTERASE, URINE AUTO 3+ (NEGATIVE); MUCUS, URINE SMALL (NEGATIVE); NITRITE, URINE AUTO NEGATIVE (NEGATIVE); PROTEIN, URINE AUTO 1+ mg/dL (NEGATIVE); RBC, URINE AUTO 11 /HPF (0-3); SPECIFIC GRAVITY URINE AUTO 1.016 (1.002-1.035); SQUAMOUS EPITHELIAL CELL UR AU 0 /HPF (0-6); UROBILINOGEN, URINE AUTO 2.0 mg/dL (0.0-2.0); WBC, URINE AUTO TNTC /HPF (0-3)
== END ==
LOC: M SMT 16:46
PROVIDERS: ATTEND Physician Assistant
DX: R31.9 Hematuria, unspecified (principal)

== ENCOUNTER → 2025-08-24 | Outpatient (CLI) | payer OTHER, MEDICARE | LOC: M RAD 14:41 | PROVIDERS: ATTEND Nurse Practitioner Family | DX: I70.213 Atherosclerosis of native arteries of extremities with intermittent claudication, bilateral legs (principal) ==